=== PATIENT | male | born 2000 | race Caucasian/White ===

== ENCOUNTER 2018-05-03 23:17 | Emergency (ER) | payer OTHER ==
[2018-05-03] MEDS ORDERED: IPRATROPIUM/ALBUTEROL 3 ML DEYVIAL IH ONE (23:25)
[2018-05-03] MEDS ORDERED: NS 1,000 ML IV ONE ×3 (23:25→23:30)
--- NOTE | 2018-05-03 23:26 | EDPHY ---
H & P Stated Complaint: N/V/D, FEVER, COUGH Time Seen by Provider: 05/03/18 23:26 HPI/ROS: HPI CHIEF COMPLAINT: Nausea vomiting diarrhea, cough, chills, muscle aches, joint pain HISTORY OF PRESENT ILLNESS: 17 year male, otherwise healthy without any significant medical history presents emergency room with 2-3 days of worsening cough, chills, muscle aches, joint pain, nausea, vomiting, diarrhea. States he feels like he has the flu. He did not get his flu shot this year. States had a fever for the past 2 days for which he has been taking Tylenol. He is unsure of the exact temp as he did not take it. Main complaint nausea, vomiting, diarrhea. Denies this being bloody. Cough is productive. Clear sputum. No blood. Past Medical History: Denies medical history Past Surgical History: Denies surgical history Social History: Denies drugs, or tobacco. Drinks alcohol occasionally. Family History: Noncontributory ROS REVIEW OF SYSTEMS: 10 Systems were reviewed and negative with the exception of the elements mentioned in the history of present illness. Exam Constitutional triage nursing summary reviewed, vital signs reviewed, awake/ alert. Tachycardic at triage. Otherwise nontoxic, vital signs stable Eyes normal conjunctivae and sclera, EOMI, PERRLA. HENT normal inspection, atraumatic, moist mucus membranes, no epistaxis, neck supple/ no meningismus, no raccoon eyes. Respiratory bronchitic cough on exam, no significant wheezing, no distress Cardiovascular tachycardia, regular rhythm, no murmur, no edema, distal pulses normal. Gastrointestinal soft, non-tender, no rebound, no guarding, normal bowel sounds, no distension, no pulsatile mass. Genitourinary no CVA tenderness. Musculoskeletal no midline vertebral tenderness, full range of motion, no calf swelling, no tenderness of extremities, no meningismus, good pulses, neurovascularly intact. Skin pink, warm, & dry, no rash, skin atraumatic. Neurologic awake, alert and oriented x 3, AAOx3, moves all 4 extremities equally, motor intact, sensory intact, CN II-XII intact, normal cerebellar, normal vision, normal speech. Psychiatric normal mood/affect. Heme/Lymph/Immune no lymphadenopathy. Differential Diagnosis: Includes but is not limited to in a particular order dehydration, electrolyte disturbance, influenza, viral syndrome, viral pneumonia , bacterial pneumonia, acute nausea vomiting and diarrhea Medical Decision Making: However this patient IV establishment IV fluid bolus 2 L normal saline, IV Zofran for nausea, check basic blood work, influenza, chest x-ray, DuoNeb and re-evaluate. Re-evaluation: Chest x-ray negative for pneumonia. Influenza test pending. Patient receiving 2 L of fluid. 3:30 a.m. Patient resting comfortably no acute distress. Tachycardia resolved with IV fluids. The patient received 3 L here. Doing very well. Fever down. Patient's chest x-ray reveals no evidence pneumonia Patient is influenza test is negative. Given the symptoms of fever, muscle aches, joint pain, cough with bronchitis on exam this is most likely a viral syndrome. I do recommend he stays well hydrated drink lots of fluids stay well-hydrated, alternate Tylenol Motrin for pain control and fever. Patient should Return to the emergency room if he has any worsening symptoms includes high fever, vomiting, shortness of breath, bad cough, not doing well. 0415: Patient re-evaluated this time resting comfortably. Feels much better. He has received 3 L of fluid here in the emergency room. Fevers down heart rate down. He ambulated well throughout the emergency room. The patient is requesting discharge home. I believe this patient to have a viral syndrome. I did encourage patient drink lots of fluids stay well-hydrated Return precautions discussed with the patient. Patient understands return emergency room if develops high fever, vomiting, not doing well not feeling well. Alternate Tylenol and Motrin. P.o. Fluids. Return precautions discussed. Source: Patient - Personal History Current Tetanus Diphtheria and Acellular Pertussis (TDAP): Unsure - Medical/Surgical History Hx Asthma: Yes Hx Chronic Respiratory Disease: No Hx Diabetes: No Hx Cardiac Disease: No Hx Renal Disease: No Hx Cirrhosis: No Hx Alcoholism: No Hx HIV/AIDS: No Hx Splenectomy or Spleen Trauma: No Other PMH: DENIES - Social History Smoking Status: Current every day smoker Constitutional: Initial Vital Signs Temperature (C) 37.0 C 05/03/18 23:22 Heart Rate 123 H 05/03/18 23:22 Respiratory Rate 20 05/03/18 23:22 Blood Pressure 114/82 H 05/03/18 23:22 O2 Sat (%) 94 05/03/18 23:22 O2 Delivery Mode Room Air Allergies/Adverse Reactions: No Known Allergies Allergy (Unverified 05/03/18 23:21) Home Medications: Medication Instructions Recorded Albuterol [Proventil Inhaler HFA 1 - 2 puffs IH Q4H #1 mdi 05/04/18 (*)] Azithromycin [Zithromax] 250 mg PO DAILY #6 tab 05/04/18 Ibuprofen [Motrin (*)] 800 mg PO Q6-8PRN #10 tab 05/04/18 predniSONE 60 mg PO DAILY #15 tab 05/04/18 Medical Decision Making - Diagnostics Imaging Results: Imaging Impressions Chest X-Ray 05/03/18 23:25 Impression: Clear lungs. No pneumonia. - Data Points Laboratory Results: Laboratory Results 05/03/18 23:34 05/03/18 23:34 05/04/18 05/03/18 05/03/18 01:05 23:34 23:34 WBC 9.75 10^3/uL H 10^3/uL (3.80-9.50) RBC 5.64 10^6/uL 10^6/uL (4.40-6.38) Hgb 16.6 g/dL g/dL (13.7-17.5) Hct 46.4 % % (40.0-51.0) MCV 82.3 fL fL (81.5-99.8) MCH 29.4 pg pg (27.9-34.1) MCHC 35.8 g/dL g/dL (32.4-36.7) RDW 12.2 % % (11.5-15.2) Plt Count 179 10^3/uL 10^3/uL (150-400) MPV 9.8 fL fL (8.7-11.7) Neut % (Auto) 83.5 % H % (39.3-74.2) Lymph % (Auto) 5.9 % L % (15.0-45.0) [place] % (Auto) 10.1 % % (4.5-13.0) Eos % (Auto) 0.0 % L % (0.6-7.6) Baso % (Auto) 0.2 % L % (0.3-1.7) Nucleat RBC Rel Count 0.0 % % (0.0-0.2) Absolute Neuts (auto) 8.14 10^3/uL H 10^3/uL (1.70-6.50) Absolute Lymphs (auto) 0.58 10^3/uL L 10^3/uL (1.00-3.00) Absolute Monos (auto) 0.98 10^3/uL H 10^3/uL (0.30-0.80) Absolute Eos (auto) 0.00 10^3/uL L 10^3/uL (0.03-0.40) Absolute Basos (auto) 0.02 10^3/uL 10^3/uL (0.02-0.10) Absolute Nucleated RBC 0.00 10^3/uL 10^3/uL (0-0.01) Immature Gran % 0.3 % % (0.0-1.1) Immature Gran # 0.03 10^3/uL 10^3/uL (0.00-0.10) RBC/WBC/PLT Morphology TNP Platelet Estimate TNP Sodium 134 mEq/L L mEq/L (135-145) Potassium 3.6 mEq/L mEq/L (3.5-5.2) Chloride 98 mEq/L mEq/L (97-110) Carbon Dioxide 22 mEq/l mEq/l (22-31) Anion Gap 14 mEq/L mEq/L (6-14) BUN 18 mg/dL mg/dL (7-23) Creatinine 1.2 mg/dL mg/dL (0.7-1.3) Estimated GFR > 60 Glucose 110 mg/dL H mg/dL (70-100) Calcium 9.5 mg/dL mg/dL (8.5-10.4) Urine Color YELLOW Urine Appearance HAZY Urine pH 5.0 (5.0-7.5) Ur Specific Mcdonald 1.030 (1.002-1.030) Urine Protein 2+ H (NEGATIVE) Urine Ketones 1+ H (NEGATIVE) Urine Blood NEGATIVE (NEGATIVE) Urine Nitrate NEGATIVE (NEGATIVE) Urine Bilirubin NEGATIVE (NEGATIVE) Urine Urobilinogen NEGATIVE EU EU (0.2-1.0) Ur Leukocyte Esterase NEGATIVE (NEGATIVE) Urine RBC 1-3 /hpf /hpf (0-3) Urine WBC 1-3 /hpf /hpf (0-3) Ur Epithelial Cells NONE SEEN /lpf /lpf (NONE-1+) Hyaline Casts 5-15 /lpf /lpf (0-1) Urine Mucus 1+ /lpf /lpf (NONE-1+) Urine Glucose NEGATIVE (NEGATIVE) Nasal Influenza A PCR Nasal Influenza B PCR 05/03/18 23:30 WBC RBC Hgb Hct MCV MCH MCHC RDW Plt Count MPV Neut % (Auto) Lymph % (Auto) [place] % (Auto) Eos % (Auto) Baso % (Auto) Nucleat RBC Rel Count Absolute Neuts (auto) Absolute Lymphs (auto) Absolute Monos (auto) Absolute Eos (auto) Absolute Basos (auto) Absolute Nucleated RBC Immature Gran % Immature Gran # RBC/WBC/PLT Morphology Platelet Estimate Sodium Potassium Chloride Carbon Dioxide Anion Gap BUN Creatinine Estimated GFR Glucose Calcium Urine Color Urine Appearance Urine pH Ur Specific Mcdonald Urine Protein Urine Ketones Urine Blood Urine Nitrate Urine Bilirubin Urine Urobilinogen Ur Leukocyte Esterase Urine RBC Urine WBC Ur Epithelial Cells Hyaline Casts Urine Mucus Urine Glucose Nasal Influenza A PCR NEGATIVE FOR FLU A (NEGATIVE) Nasal Influenza B PCR NEGATIVE FOR FLU B (NEGATIVE) Medications Given: Discontinued Medications Albuterol/Ipratropium (Duoneb) 3 ml IH EDNOW ONE Stop: 05/03/18 23:26 Last Admin: 05/03/18 23:29 Dose: 3 ml Sodium Chloride (Ns) 1,000 mls @ 0 mls/hr IV ONCE ONE; Wide Open PRN Reason: Protocol Stop: 05/03/18 23:26 Last Admin: 05/03/18 23:31 Dose: 1,000 mls Sodium Chloride (Ns) 1,000 mls @ 0 mls/hr IV ONCE ONE PRN Reason: Wide Open Stop: 05/03/18 23:27 Last Admin: 05/03/18 23:31 Dose: 1,000 mls Sodium Chloride (Ns) 1,000 mls @ 0 mls/hr IV ONCE ONE PRN Reason: Wide Open Stop: 05/03/18 23:31 Last Admin: 05/03/18 23:36 Dose: Not Given Sodium Chloride (Ns) 1,000 mls @ 0 mls/hr IV EDNOW ONE; Wide Open PRN Reason: Protocol Stop: 05/04/18 01:09 Last Admin: 05/04/18 01:09 Dose: 1,000 mls Ibuprofen (Motrin) 800 mg PO EDNOW ONE Stop: 05/04/18 00:55 Last Admin: 05/04/18 00:56 Dose: 800 mg Departure - Departure Disposition: Home, Routine, Self-Care Clinical Impression: Viral syndrome, Bronchitis Condition: Good Instructions: Dehydration (ED), Viral Syndrome (ED), Cold Symptoms (ED), Acute Cough (ED) Additional Instructions: 1. Drink lots of fluids and stay well-hydrated. 2. Alternate tylenol and Motrin every 6 hr for fever and pain control 3. Return to the emergency room if worsening symptoms. Referrals: NONE *PRIMARY CARE P,. [Primary Care Provider] - As per Instructions [facility] [Clinic] - As per Instructions Prescriptions: Albuterol [Proventil Inhaler HFA (*)] 1 - 2 puffs IH Q4H #1 mdi Azithromycin [Zithromax] 250 mg PO DAILY #6 tab Ibuprofen [Motrin (*)] 800 mg PO Q6-8PRN #10 tab predniSONE 60 mg PO DAILY #15 tab
[2018-05-03 23:59] LABS: PLATELET COUNT 179 10^3/uL (150-400)
[2018-05-04] MEDS ORDERED: IBUPROFEN 800 MG TAB PO ONE (00:54)
[2018-05-04] MEDS ORDERED: NS 1,000 ML IV ONE (01:08)
[2018-05-04 04:11] VITALS: BP 119/70
== END 2018-05-04 04:28 | disposition home or self-care (01) ==
DX: B34.9 Viral infection, unspecified (principal); J40 Bronchitis, not specified as acute or chronic; E86.9 Volume depletion, unspecified; R19.7 Diarrhea, unspecified; R11.2 Nausea with vomiting, unspecified; F17.200 Nicotine dependence, unspecified, uncomplicated